=== PATIENT | male | born 1960 | race Caucasian/White ===

== ENCOUNTER 2018-09-17 13:50 | Outpatient (REF) | payer BC, SELFPAY ==
[2018-09-17 21:18] LABS: Anion Gap 10.2 mmol/L (3-11); BUN 12 mg/dL (7-18); CO2 27.8 mmol/L (21.0-32.0); CREATININE 0.83 mg/dL (0.70-1.30); Calcium 9.2 mg/dL (8.5-10.1); Chloride 101 mmol/L (98-107); Glucose 100 mg/dL (70-100); Potassium 3.7 mmol/L (3.5-5.1); Sodium 139 mmol/L (136-145)
== END 2018-09-17 14:10 ==
LOC: NCHCN 13:50
PROVIDERS: PCP Physician Assistant Medical; Visit Provider Physician Assistant Medical
DX: I10 Essential (primary) hypertension (principal)
CPT/HCPCS: 80048

== ENCOUNTER 2019-01-08 10:10 | Outpatient (REF) | payer BC, SELFPAY ==
[2019-01-08 19:43] LABS: Calculated LDL 158 mg/dL; Cholesterol 256 mg/dL (50-200); HDL Cholesterol 83 mg/dL (40-60); Triglyceride 78 mg/dL (30-150)
== END 2019-01-08 10:30 ==
LOC: NCHCN 10:10
PROVIDERS: PCP Nurse Practitioner Family; Visit Provider Nurse Practitioner Family
DX: Z13.220 Encounter for screening for lipoid disorders (principal)
CPT/HCPCS: 80061

== ENCOUNTER 2019-06-02 14:01 | Outpatient (REF) | payer SELFPAY ==
[2019-06-02 20:36] LABS: ALT 23 U/L (16-63); AST 14 U/L (15-37); Albumin 3.5 g/dL (3.4-5.0); Alkaline Phosphatase 58 U/L (46-116); Anion Gap 9.7 mmol/L (3-11); BUN 14 mg/dL (7-18); Bilirubin, Total 0.5 mg/dL (0.2-1.0); CO2 32.3 mmol/L (21.0-32.0); Calcium 8.9 mg/dL (8.5-10.1); Chloride 100 mmol/L (98-107); Glucose 99 mg/dL (74-106); Potassium 3.7 mmol/L (3.5-5.1); Sodium 142 mmol/L (136-145); Total Protein 6.9 g/dL (6.4-8.2)
== END 2019-06-02 14:21 ==
LOC: NCHCN 14:01
PROVIDERS: PCP Nurse Practitioner Family; Visit Provider Nurse Practitioner Family
DX: I10 Essential (primary) hypertension (principal)
CPT/HCPCS: 80053

== ENCOUNTER 2020-03-11 09:24 | Outpatient (REF) | payer OTHER, SELFPAY ==
[2020-03-15 22:43] LABS: SARS-CoV-2 RNA Undetected (Undetected); SARS-CoV-2 Specimen Source Nasal
== END 2020-03-11 09:44 ==
LOC: NCHCN 09:24
PROVIDERS: PCP Nurse Practitioner Family; Visit Provider Nurse Practitioner Family
DX: Z20.828 Contact with and (suspected) exposure to other viral communicable diseases (principal)
CPT/HCPCS: U0003

== ENCOUNTER 2020-07-11 10:49 | Outpatient (REF) | payer OTHER, SELFPAY ==
[2020-07-12 03:45] LABS: COVID-19 RT-PCR UVMMC Result Positive (Negative)
== END 2020-07-11 10:50 | disposition home or self-care (01) ==
LOC: NCHCN 10:49
PROVIDERS: PCP Nurse Practitioner Family; Visit Provider Internal Medicine
DX: Z20.822 Contact with and (suspected) exposure to COVID-19 (principal); B34.9 Viral infection, unspecified; R05 Cough
CPT/HCPCS: U0003

== ENCOUNTER 2020-09-12 09:02 | Outpatient (REF) | payer OTHER, SELFPAY ==
[2020-09-12 16:25] LABS: ALT 32 U/L (16-63); AST 22 U/L (15-37); Albumin 3.4 g/dL (3.4-5.0); Alkaline Phosphatase 59 U/L (46-116); Anion Gap 7.8 mmol/L (3-11); BUN 12 mg/dL (7-18); Bilirubin, Total 0.4 mg/dL (0.2-1.0); CO2 31.2 mmol/L (21.0-32.0); CREATININE 0.9 mg/dL (0.70-1.30); Calcium 8.9 mg/dL (8.5-10.1); Calculated LDL 145 mg/dL (<100); Chloride 102 mmol/L (98-107); Cholesterol 233 mg/dL (<200); Glucose 104 mg/dL (74-106); HDL Cholesterol 70 mg/dL (40-60); Potassium 4.5 mmol/L (3.5-5.1); Sodium 141 mmol/L (136-145); Total Protein 6.7 g/dL (6.4-8.2); Triglyceride 91 mg/dL (<150)
== END 2020-09-12 09:03 | disposition home or self-care (01) ==
LOC: NCHCN 09:02
PROVIDERS: PCP Nurse Practitioner Family; Visit Provider Physician Assistant
DX: I10 Essential (primary) hypertension (principal); Z13.220 Encounter for screening for lipoid disorders
CPT/HCPCS: 80053; 80061

== ENCOUNTER 2022-04-03 17:11 | Outpatient (REF) | payer OTHER, SELFPAY ==
[2022-04-03 19:03] LABS: Anion Gap 8.8 mmol/L (3-11); BUN 19 mg/dL (7-18); CO2 29.2 mmol/L (21.0-32.0); Calcium 9.7 mg/dL (8.5-10.1); Chloride 98 mmol/L (98-107); Glucose 108 mg/dL (74-106); Potassium 3.5 mmol/L (3.5-5.1); Sodium 136 mmol/L (136-145)
== END 2022-04-03 17:12 | disposition home or self-care (01) ==
LOC: NCHCN 17:11
PROVIDERS: PCP Nurse Practitioner Family; Visit Provider Physician Assistant
DX: I10 Essential (primary) hypertension (principal)
CPT/HCPCS: 80048

== ENCOUNTER 2023-08-05 11:05 | Outpatient (REF) | payer OTHER, SELFPAY ==
[2023-08-05 20:09] LABS: ALT 30 U/L (16-63); AST 22 U/L (15-37); Albumin 3.3 g/dL (3.4-5.0); Alkaline Phosphatase 55 U/L (46-116); Anion Gap 8.6 mmol/L (3-11); BUN 17 mg/dL (7-18); Bilirubin, Total 0.5 mg/dL (0.2-1.0); CO2 29.4 mmol/L (21.0-32.0); Calcium 9.2 mg/dL (8.5-10.1); Calculated LDL 203 mg/dL (<100); Chloride 103 mmol/L (98-107); Cholesterol 293 mg/dL (<200); Estimated GFR 84.57 (mL/min/1.73m2); Glucose 120 mg/dL (74-106); HDL Cholesterol 69 mg/dL (40-60); Potassium 4.2 mmol/L (3.5-5.1); Sodium 141 mmol/L (136-145); Total Protein 7.1 g/dL (6.4-8.2); Triglyceride 107 mg/dL (<150)
== END 2023-08-05 11:06 | disposition home or self-care (01) ==
LOC: NCHCN 11:05
PROVIDERS: PCP Nurse Practitioner Family; Visit Provider Physician Assistant
DX: E78.5 Hyperlipidemia, unspecified (principal)
CPT/HCPCS: 80053; 80061

== ENCOUNTER 2024-04-09 10:58 | Outpatient (REF) | payer OTHER, SELFPAY ==
[2024-04-16 15:48] LABS: Codeine Negative ng/mL (Cutoff: 25); Dihydrocodeine 203 ng/mL (Cutoff: 25); Hydrocodone 1012 ng/mL (Cutoff: 25); Hydromorphone 34 ng/mL (Cutoff: 25); Morphine Negative ng/mL (Cutoff: 25); Naloxone Negative ng/mL (Cutoff: 25); Norhydrocodone 663 ng/mL (Cutoff: 25); Noroxycodone Negative ng/mL (Cutoff: 25); Noroxymorphone Negative ng/mL (Cutoff: 25); Opiates Interpretation Positive.
== END 2024-04-09 10:59 | disposition home or self-care (01) ==
LOC: NCHCN 10:58
PROVIDERS: PCP Nurse Practitioner Family; Visit Provider Physician Assistant
DX: G89.29 Other chronic pain (principal); Z79.891 Long term (current) use of opiate analgesic
CPT/HCPCS: 80361; 80362; 80365

== ENCOUNTER 2024-07-09 10:43 | Outpatient (REF) | payer OTHER, SELFPAY ==
[2024-07-09 19:56] LABS: ALT 40 U/L (16-63); AST 28 U/L (15-37); Albumin 3.2 g/dL (3.4-5.0); Alkaline Phosphatase 70 U/L (46-116); Anion Gap 8.2 mmol/L (3-11); BUN 17 mg/dL (7-18); Bilirubin, Total 0.3 mg/dL (0.2-1.0); CO2 30.8 mmol/L (21.0-32.0); CREATININE 0.9 mg/dL (0.70-1.30); Calcium 9.4 mg/dL (8.5-10.1); Chloride 104 mmol/L (98-107); Estimated GFR 95.37 (mL/min/1.73m2); Glucose 107 mg/dL (74-106); Potassium 4.2 mmol/L (3.5-5.1); Sodium 143 mmol/L (136-145); Total Protein 7.3 g/dL (6.4-8.2)
[2024-07-10 19:30] LABS: PSA, Screening 15.7 ng/mL (<=4.5)
== END 2024-07-09 10:44 | disposition home or self-care (01) ==
LOC: NCHCN 10:43
PROVIDERS: PCP Nurse Practitioner Family; Visit Provider Physician Assistant
DX: Z12.5 Encounter for screening for malignant neoplasm of prostate (principal); I10 Essential (primary) hypertension
CPT/HCPCS: 80053; 84153

== ENCOUNTER 2024-10-07 12:15 | Outpatient (REF) | payer OTHER, SELFPAY ==
[2024-10-09 12:18] LABS: Fentanyl Scr w/Rfx Confirm Negative ng/mL (<1)
[2024-10-13 08:04] LABS: Codeine Negative ng/mL (Cutoff: 25); Dihydrocodeine 176 ng/mL (Cutoff: 25); Hydrocodone 1510 ng/mL (Cutoff: 25); Hydromorphone 128 ng/mL (Cutoff: 25); Morphine Negative ng/mL (Cutoff: 25); Naloxone Negative ng/mL (Cutoff: 25); Norhydrocodone 2069 ng/mL (Cutoff: 25); Noroxycodone Negative ng/mL (Cutoff: 25); Noroxymorphone Negative ng/mL (Cutoff: 25); Opiates Interpretation Positive.
== END 2024-10-07 12:16 | disposition home or self-care (01) ==
LOC: NCHCN 12:15
PROVIDERS: PCP Physician Assistant; Visit Provider Physician Assistant
DX: G89.29 Other chronic pain (principal); Z79.899 Other long term (current) drug therapy
CPT/HCPCS: 80307; 80361; 80362; 80365

== ENCOUNTER 2024-10-29 11:19 | Outpatient (REF) | payer OTHER, SELFPAY ==
--- NOTE | 2024-10-29 11:20 | PROST_PTH ---
PATIENT: Mik Alexander LOC: [facility] U#:[id number] AGE/SX: 64/M ROOM: RE10/29/[address]: Bill Alcantar MD : 1960 BED: DIS: 10/29/2024 SPEC #: [id number] RECD: 10/29/24 15:12 STATUS: DUSTIN REQ #: [id number] BENIGNO: 10/29/24 11:[address]: Bill Alcantar DEPT: Surgical Specimen RECD BY: Veronika Bright ENTERED: 10/29/24 15:15 SP TYPE: PROST OTHR DR: Ceci Harrison Tissues: 1 - PROSTATE NEEDLE BIOPSY 2 - PROSTATE NEEDLE BIOPSY 3 - PROSTATE NEEDLE BIOPSY 4 - PROSTATE NEEDLE BIOPSY 5 - PROSTATE NEEDLE BIOPSY 6 - PROSTATE NEEDLE BIOPSY 7 - PROSTATE NEEDLE BIOPSY 8 - PROSTATE NEEDLE BIOPSY 9 - PROSTATE NEEDLE BIOPSY 10 - PROSTATE NEEDLE BIOPSY 11 - PROSTATE NEEDLE BIOPSY 12 - PROSTATE NEEDLE BIOPSY Procedures: GROSS AND MICRO LEVEL 4 IMMUNOPEROXIDASE STAIN Comments: [id number]
== END 2024-10-29 11:20 | disposition home or self-care (01) ==
LOC: LBN 11:19
PROVIDERS: PCP Physician Assistant; Visit Provider Urology
DX: C61 Malignant neoplasm of prostate (principal); R97.20 Elevated prostate specific antigen [PSA]
CPT/HCPCS: 88305; 88361

== ENCOUNTER 2024-11-26 15:17 | Outpatient (CLI) | payer OTHER, SELFPAY | END 2024-11-26 15:18 | disposition home or self-care (01) | PROVIDERS: PCP Physician Assistant; Visit Provider Radiology Radiation Oncology | DX: C61 Malignant neoplasm of prostate (principal) | CPT/HCPCS: 36415; 84153 ==

== ENCOUNTER 2025-01-12 01:35 | Outpatient (CLI) | payer SELFPAY | END 2025-01-12 01:36 | disposition home or self-care (01) | LOC: LBO 01-13 01:36 | PROVIDERS: PCP Physician Assistant; Visit Provider Radiology Radiation Oncology | DX: C61 Malignant neoplasm of prostate (principal) | CPT/HCPCS: 36415; 84153 ==

== ENCOUNTER 2025-04-13 12:12 | Outpatient (REF) | payer MEDICARE, SELFPAY ==
[2025-04-15 11:12] LABS: Fentanyl Scr w/Rfx Confirm Negative ng/mL (<1)
== END 2025-04-13 12:13 | disposition home or self-care (01) ==
LOC: NCHCN 12:12
PROVIDERS: PCP Physician Assistant; Visit Provider Physician Assistant
DX: G89.29 Other chronic pain (principal)
CPT/HCPCS: 80307; 80361; 80362; 80365